=== PATIENT | male | born 1995 | race Caucasian/White ===

== ENCOUNTER → 2021-04-23 11:47 | Outpatient (CLI) | payer OTHER, SELFPAY ==
--- NOTE | 2021-04-23 11:50 | DI.US.S_ITS ---
PROCEDURE: US SCROTUM INDICATIONS: R testicular pain x3 weeks, worsened yesterday TECHNIQUE: Real-time scanning was performed of the scrotum and testicles, with image documentation. Color and pulse Doppler interrogation was performed of both testicles. COMPARISON: None. FINDINGS: Right: Testicle is normal in size at 4.2 x 2.6 x 2.9 cm, and homogenous in echotexture. Epididymis is normal in overall size and morphology. No hydrocele or varicoceles. Overlying scrotal skin is normal in thickness. Left: Testicle is normal in size at 4.3 x 2.0 x 2.7 cm, and homogeneous in echotexture. Epididymis is normal in overall size and morphology. No hydrocele or varicoceles. Overlying scrotal skin is normal in thickness. Doppler: Color and pulse Doppler demonstrate normal and symmetric arterial flow in both testicles. IMPRESSION: 1. Normal testicular sonogram. 2. No evidence of testicular torsion. Please note ultrasound cannot exclude intermittent torsion. Dictated by: Naomie Red MD, PhD on 04/23/2021 at 14:06 Approved by: Naomie Red MD, PhD on 04/23/2021 at 14:08
== END ==
PROVIDERS: Referring Provider Physician Assistant; Visit Provider Physician Assistant
DX: N50.811 Right testicular pain (principal)
CPT/HCPCS: 76870